=== PATIENT | female | born 1975 | race Caucasian/White ===

== ENCOUNTER 2023-01-29 04:08 | Inpatient (IN) | payer BC ==
[2023-01-27 14:07] VITALS: BMI 36.7
[2023-01-29] MEDS ORDERED: CEFAZOLIN SODIUM 2 GM in DEXTROSE 5%-WATER 100 ML IVPB ONE (10:00)
[2023-01-29] MEDS ORDERED: ceFAZolin SODIUM 1 GM VIAL ONE ×2 (10:54→13:22)
[2023-01-29] MEDS ORDERED: BUPIVACAINE LIPOSOME/PF (EXPAREL) 266 MG/20 ML VIAL ONE (11:30)
[2023-01-29] MEDS ORDERED: MIDAZOLAM HCL 2 MG/2 ML SINGLE DOSE VIAL ONE ×2 (11:31→13:15)
[2023-01-29] MEDS ORDERED: HEPARIN NA (PORCINE) 5,000 UNITS/ML 1ML VIAL ONE (11:37)
[2023-01-29] MEDS ORDERED: PROPOFOL 40 ML ONE (13:15)
[2023-01-29] MEDS ORDERED: ceFAZolin SODIUM 1 GM VIAL IVPB ONE (13:20)
[2023-01-29] MEDS ORDERED: KETOROLAC TROMETHAMINE 30 MG/1 ML VIAL ONE (13:22)
[2023-01-29] MEDS ORDERED: ONDANSETRON 4 MG/2 ML VIAL ONE (13:22)
[2023-01-29] MEDS ORDERED: DEXAMETHASONE SOD PHOSPHATE 4 MG/1 ML VIAL ONE (13:22)
[2023-01-29] MEDS ORDERED: HYDROmorphone HCl 2 MG/ML VIAL ONE (13:33)
[2023-01-29] MEDS ORDERED: PROPOFOL 20 ML ONE ×3 (13:59→15:40)
[2023-01-29] MEDS ORDERED: SEVOFLURANE 250 ML BTL ONE (15:00)
[2023-01-29] MEDS ORDERED: PROMETHAZINE HCL 25 MG/1 ML VIAL IVPB PRN (16:10)
[2023-01-29] MEDS ORDERED: ONDANSETRON 4 MG/2 ML VIAL IVPUSH PRN ×3 (16:10→16:12)
[2023-01-29] MEDS ORDERED: oxyCODONE HCL 5 MG TABLET PO PRN ×3 (16:10→16:12)
[2023-01-29] MEDS ORDERED: IBUPROFEN 800 MG/8 ML IJ IVPB PRN (16:12)
[2023-01-29] MEDS ORDERED: DOCUSATE SODIUM 100 MG CAPSULE (FP) PO PRN (16:12)
[2023-01-29] MEDS ORDERED: BISACODYL 5 MG TABLET.DR (FP) PO PRN (16:12)
[2023-01-29] MEDS ORDERED: SIMETHICONE 80 MG TAB.CHEW (FP) PO PRN (16:12)
[2023-01-29] MEDS ORDERED: ACETAMINOPHEN INJECTION 100 ML IVPB ONE (17:28)
[2023-01-29] MEDS: ACETAMINOPHEN 1000 MG/100 ML BAG IVPB PRN (17:37)
[2023-01-29] MEDS: LACTATED RINGERS SOLUTION 1,000 ML IV SCH (18:17)
[2023-01-29] MEDS: CEFAZOLIN 1 GM in DEXTROSE 5%-WATER - 50 ML IVPB SCH (21:35)
[2023-01-30] MEDS: ACETAMINOPHEN 325 MG TABLET (FP) PO PRN ×2 (01:19→22:54)
[2023-01-30] MEDS: LACTATED RINGERS SOLUTION 1,000 ML IV SCH ×2 (02:21→09:31)
[2023-01-30] MEDS: CEFAZOLIN 1 GM in DEXTROSE 5%-WATER - 50 ML IVPB SCH ×2 (05:45→13:48)
[2023-01-30] MEDS: ACETAMINOPHEN 1000 MG/100 ML BAG IVPB PRN (06:36)
[2023-01-30] MEDS: ENOXAPARIN NA (PORCINE) 40 MG/0.4 ML DISP.SYRIN SQ SCH (09:14)
[2023-01-30 09:31] LABS: HEMATOCRIT 33.5 % (32.4-45.2); HEMOGLOBIN 10.6 GM/dL (10.7-15.3); MCH 26.8 pg (25.7-33.7); MCHC 31.8 g/dl (32.0-36.0); MEAN CELL VOLUME 84.2 fl (80-96); MEAN PLT VOLUME 9.3 fl (7.5-11.1); PLATELET COUNT 274 10^3/uL (134-434); RBC 3.97 M/mm3 (3.60-5.2); RDW 15.9 % (11.6-15.6); WHITE BLOOD COUNT 11.4 K/mm3 (4.0-10.0)
[2023-01-30] MEDS ORDERED: KETOROLAC TROMETHAMINE 30 MG/1 ML VIAL IVPUSH SCH (12:00)
[2023-01-30] MEDS ORDERED: BACLOFEN 10 MG TABLET (FP) PO ONE (12:20)
[2023-01-30] MEDS ORDERED: BACLOFEN 10 MG TABLET (FP) PO PRN (14:51)
[2023-01-30] MEDS ORDERED: IBUPROFEN 600 MG TABLET (FP) PO PRN (16:13)
[2023-01-30] MEDS: KETOROLAC TROMETHAMINE 30 MG/1 ML VIAL IVPUSH SCH (18:28)
[2023-01-31] MEDS: oxyCODONE HCL 5 MG TABLET PO PRN ×2 (00:53→09:44)
[2023-01-31] MEDS: LACTATED RINGERS SOLUTION 1,000 ML IV SCH (02:21)
[2023-01-31] MEDS: KETOROLAC TROMETHAMINE 30 MG/1 ML VIAL IVPUSH SCH ×2 (03:11→10:44)
[2023-01-31 08:51] VITALS: BP 136/71; PULSE 93; RESP 20; TEMP 98
[2023-01-31] MEDS: ENOXAPARIN NA (PORCINE) 40 MG/0.4 ML DISP.SYRIN SQ SCH (09:44)
== END 2023-01-31 14:30 | disposition home or self-care (01) | DRG 743 ==
LOC: J2C 04:08 → J6S 17:48
PROVIDERS: ADMIT Specialist; ATTEND Specialist
PROC: 0DNW0ZZ Release Peritoneum, Open Approach (ICD-10-PCS; 2023-01-29)
PROC: 0UT70ZZ Resection of Bilateral Fallopian Tubes, Open Approach (ICD-10-PCS; 2023-01-29)
PROC: 0UT20ZZ Resection of Bilateral Ovaries, Open Approach (ICD-10-PCS; 2023-01-29)
PROC: 0UT90ZZ Resection of Uterus, Open Approach (ICD-10-PCS; principal; 2023-01-29 12:00)
DX: D25.9 Leiomyoma of uterus, unspecified (principal); N73.6 Female pelvic peritoneal adhesions (postinfective); N80.03 Adenomyosis of the uterus; N93.8 Other specified abnormal uterine and vaginal bleeding; N92.0 Excessive and frequent menstruation with regular cycle; E66.9 Obesity, unspecified; Z68.36 Body mass index [BMI] 36.0-36.9, adult
CPT/HCPCS: 36415; 81025; 85027; 88307-TC; 94010; 94760; J0475; J1644